=== PATIENT | male | born 1935 | race Caucasian/White ===

== ENCOUNTER 2019-01-03 12:14 | Observation (INO) ==
[2019-01-03] MEDS ORDERED: GI COCKTAIL ED USE PO ONE (12:33)
[2019-01-03 12:55] LABS: Basophils # (auto) 0.07 K/uL (0-0.2); Basophils % (auto) 1.2 %; Eosinophils # (auto) 0.16 K/uL (0-0.5); Eosinophils % (auto) 2.7 %; Hematocrit (blood only) 31.1 % (42-52); Hemoglobin 10.6 g/dL (14.0-18.0); Immature Granulocytes # (auto) 0.01 K/uL (0.00-0.02); Immature Granulocytes % (auto) 0.2 %; Lymphocytes # (auto) 1.51 K/uL (1.2-3.4); Lymphocytes % (auto) 25.5 %; Mean Corpuscular Hgb Conc 34.1 g/dL (32-36); Mean Corpuscular Volume 79.9 fL (80-100); Mean Platelet Volume 9.9 fL (7.4-10.4); Monocytes # (auto) 0.56 K/uL (0.11-0.59); Monocytes % (auto) 9.5 %; Neutrophils # (auto) 3.61 K/uL (1.4-6.5); Neutrophils % (auto) 60.9 %; Platelet Count 296 K/uL (130-400); RDW Coefficient of Variation 16.1 % (11.5-14.5); RDW Standard Deviation 46.8 fL (36.4-46.3); Red Blood Count 3.89 M/uL (4.7-6.1); White Blood Count 5.92 K/uL (4.8-10.8)
--- NOTE | 2019-01-03 13:04 | XRay Report ---
XR chest 1V portable CLINICAL HISTORY: Chest Pain COMPARISON STUDY: No previous studies for comparison. FINDINGS: Thoracolumbar spine fusion hardware and intracanalicular electrodes are noted. Old right ri b fractures are present. Chronic deformity of the proximal right humerus is present. There is no pneu mothorax or pleural effusion. There is no consolidation or evidence for pulmonary edema. Cardiac size is normal. Mediastinal contours are unremarkable. IMPRESSION: No acute cardiopulmonary findings. Electronically signed by: Kvng Solorzano M.D. 01/03/2019 1:03 PM
[2019-01-03 13:09] LABS: Alanine Aminotransferase 24 U/L (12-78); Albumin Level 3.2 gm/dl (3.4-5.0); Aspartate Aminotransferase 23 U/L (15-37); BUN Creatinine Ratio 24.5 (10-20); Blood Urea Nitrogen 17 mg/dl (7-18); Carbon Dioxide 24 mmol/L (21-32); Chloride 112 mmol/L (98-107); Creatinine Clr Calc Pharmacy 69.6 ml/min; Est GFR (African American) 101.2; Est GFR (Non-African American) 87.3; Glucose 110 mg/dl (70-99); Potassium 3.8 mmol/L (3.5-5.1); Sodium 144 mmol/L (136-145)
[2019-01-03 13:14] LABS: Albumin Globulin Ratio 1.2 (0.9-2); Alkaline Phosphatase 166 U/L (45-117); Bilirubin,Total 0.3 mg/dl (0.2-1); Globulin 2.8 gm/dl (2.5-4.0); Troponin I < 0.015 ng/ml (0-0.045)
--- NOTE | 2019-01-03 14:03 | Emergency Department Note ---
Entered by An Cross acting as a scribe for History of Present Illness General Chief complaint: Chest Pain Stated complaint: POSSIBLE HEART ATTACK Time Seen by Provider: 01/03/19 12:22 Source: patient History of Present Illness Onset (ago): hour(s) (this morning) Location: chest Pain Consistency: + other (episode) Maximum Pain Intensity: 3 Quality: + other (pressure) Relieved By: not by medication (Plavix, Zantac, Nitro (x2)) and not by other (cider vinegar) Associated symptoms: + denies other symptoms (radiation, shortness of breath, or pain or swelling in his legs) and + other (belching, gas) The patient is a 83 year old male that is presenting to the Emergency Room with complaints of an episode of chest pain that started this morning upon waking around 0700. The patient reports that the pain feels like a pressure under his left ribcage. He states that he has some associated gas and belching. He notes that he took Plavix, Zantac, cider vinegar, and 2 nitros with only a slight relief in his symptoms. He states that the pressure is present currently. He denies any radiation, shortness of breath, or pain or swelling in his legs. The patient notes that he has a history of 2 massive heart attacks and a coronary stent placement in [place]. He states that since his stent was placed on 07/07/18 he has had intermittent episodes of similar symptoms. He reports that he has been admitted to the hospital for similar symptoms but notes that they have not been able to make a diagnosis. He states that his doctor believes the pain is non-cardiac in origin. He notes that a GI cocktail usually helps relieve his symptoms. He denies having any similar symptoms prior to his stent placement. The patient states that he has not had any symptoms in the past 3 months. He reports that his last bowel movement was this morning after his symptoms began. He notes that he takes baby aspirin and Plavix daily. He states that his current symptoms are somewhat similar to his past episodes of heart attacks. The patient states that he lives in [place], [place]. Home Medications Home Medications Medication Instructions Recorded Confirmed Type aspirin 81 mg PO DAILY 01/03/19 01/03/19 History atorvastatin 80 mg PO DAILY 01/03/19 01/03/19 History carvedilol [Coreg] 6.25 mg PO BID 01/03/19 01/03/19 History clopidogrel [Plavix] 75 mg PO DAILY 01/03/19 01/03/19 History folic acid 1 mg PO DAILY 01/03/19 01/03/19 History multivitamin 1 tab PO DAILY 01/03/19 01/03/19 History nitroglycerin 0.4 mg SUBLINGUAL UD PRN 01/03/19 01/03/19 History ranitidine HCl 150 mg PO BID 01/03/19 01/03/19 History tramadol 50 mg PO TID PRN 01/03/19 01/03/19 History vitamin E 1,000 unit PO DAILY 01/03/19 01/03/19 History Allergies Allergy/AdvReac Type Severity Reaction Status Date / Time Iodinated Contrast- Oral and Allergy Severe RESTRICTED Unverified 01/03/19 13:11 IV Dye BREATHING Iodine and Iodide Containing Allergy Severe RESTRICTED Unverified 01/03/19 13:11 Produc BREATHING Past Med/Surg History Medical History CAD (coronary artery disease) (Chronic) History of heart attack (Acute) Surgical History S/P coronary artery stent placement Social History marital status: / Current Living Situation: Alone current occupational status: retired Feels Safe at Home: Yes Smoking Status: Never smoker Review of Systems See HPI for pertinent positives & negatives. and A total of 10 systems reviewed and were otherwise negative Physical Exam Vital Signs Vital Signs - 24 hr 01/03/19 12:19 01/03/19 12:47 01/03/19 12:49 Temperature 36.9 C Temperature Source Oral Sepsis Recent Fever Within 48 Hours No Sepsis New/Unexplained Change in Mental Status No Sepsis Action Taken by Nursing No Action Required Pulse Rate 62 56 L 59 L Pulse Rate from SpO2 Sensor 56 L 61 Respiratory Rate 18 14 15 Blood Pressure 131/68 123/61 Blood Pressure Mean 89 81 Pulse Oximetry 96 98 97 Oxygen Delivery Method Room Air 01/03/19 13:00 Temperature Temperature Source Sepsis Recent Fever Within 48 Hours Sepsis New/Unexplained Change in Mental Status Sepsis Action Taken by Nursing Pulse Rate 56 L Pulse Rate from SpO2 Sensor 57 L Respiratory Rate 14 Blood Pressure 128/71 Blood Pressure Mean 90 Pulse Oximetry 97 Oxygen Delivery Method General: Non-ill appearing older male in no acute distress. HEENT: Normal cephalic atraumatic. Pupils are equal round and reactive to light. Extraocular movements are intact. Oropharynx is pink with moist mucous membranes. No swelling of the mouth lips or tongue. Neck: Supple with a midline trachea. No meningeal signs or stiffness, no JVD or bruits. No Stridor. Chest: Clear to auscultation bilaterally. No wheezes or rhonchi. No increased work of breathing. Heart: regular rate and rhythm. Abdomen: Soft nontender, nondistended without rebound guarding or rigidity. Extremities: No cyanosis clubbing or edema. No calf tenderness or asymmetry Spine/Back. Non tender to palpation. No CVA tenderness Skin: Good turgor without rashes. Neurologic exam: Cranial nerves two through 12 are intact. Motor and sensation are intact and symmetrical throughout. Course 1225:The patient was evaluated in room B02. A complete history and physical examination was performed. 1250: I reevaluated the patient who is resting comfortably at this time. 1315: I spoke with the patient's son-in-law at this time who states that the GI cocktail has improved the patient's symptoms. 1355: I discussed the patient's case with GUSTAVO Mills, who will evaluate the patient for further management and care with Dr. Dennis as the attending physician. 1400: Upon reevaluation, the patient is resting comfortably. I discussed laboratory and radiographic results with the patient. He verbalized agreement of the treatment plan. The patient will be evaluated for further management and care. Consultations Consultation #1: I discussed the patient's case with GUSTAVO Mills, who will evaluate the patient for further management and care with Dr. Dennis as the attending physician. Time: 13:55 Administered Medications Discontinued Medications Al Hydrox/Mg Hydrox/Simethicone () 1 dose PO ONE ONE Stop: 01/03/19 12:34 Last Admin: 01/03/19 12:47 Dose: 1 dose Documented by: [id number] Medical Decision Making Differential Diagnosis Differential diagnosis includes: Etiologies such as acute coronary syndrome, GERD, CHF, anxiety, electrolyte or metabolic abnormalities as well as others. Medical Records Attestation: I reviewed the patient's medical records. Home Medications Current Medication List: was personally reviewed by me Laboratory Data Attestation: I reviewed the patient's lab results. Result diagrams: 01/03/19 12:44 01/03/19 12:44 Lab Results 01/03/19 01/03/19 Range/Units 12:44 12:44 WBC 5.92 (4.8-10.8) K/uL RBC 3.89 L (4.7-6.1) M/uL Hgb 10.6 L (14.0-18.0) g/dL Hct 31.1 L (42-52) % MCV 79.9 L (80-100) fL MCH 27.2 (25-34) pg MCHC 34.1 (32-36) g/dL RDW Std Deviation 46.8 H (36.4-46.3) fL RDW Coeff of Taniya 16.1 H (11.5-14.5) % Plt Count 296 (130-400) K/uL MPV 9.9 (7.4-10.4) fL Immature Gran % (Auto) 0.2 % Neut % (Auto) 60.9 % Lymph % (Auto) 25.5 % [place] % (Auto) 9.5 % Eos % (Auto) 2.7 % Baso % (Auto) 1.2 % Immature Gran # (Auto) 0.01 (0.00-0.02) K/uL Neut # (Auto) 3.61 (1.4-6.5) K/uL Lymph # (Auto) 1.51 (1.2-3.4) K/uL [place] # (Auto) 0.56 (0.11-0.59) K/uL Eos # (Auto) 0.16 (0-0.5) K/uL Baso # (Auto) 0.07 (0-0.2) K/uL Sodium 144 (136-145) mmol/L Potassium 3.8 (3.5-5.1) mmol/L Chloride 112 H (98-107) mmol/L Carbon Dioxide 24 (21-32) mmol/L Anion Gap 7.0 (3-11) BUN 17 (7-18) mg/dl Creatinine 0.70 (0.6-1.4) mg/dl Est Cr Clr Drug Dosing 69.6 ml/min Est GFR ( Amer) 101.2 Est GFR (Non-Af Amer) 87.3 BUN/Creatinine Ratio 24.5 H (10-20) Glucose 110 H (70-99) mg/dl Calcium 8.0 L (8.5-10.1) mg/dl Total Bilirubin 0.3 (0.2-1) mg/dl AST 23 (15-37) U/L ALT 24 (12-78) U/L Alkaline Phosphatase 166 H (45-117) U/L Troponin I < 0.015 (0-0.045) ng/ml Total Protein 6.0 L (6.4-8.2) gm/dl Albumin 3.2 L (3.4-5.0) gm/dl Globulin 2.8 (2.5-4.0) gm/dl Albumin/Globulin Ratio 1.2 (0.9-2) Lipase 79 (73-393) U/L Imaging Data Radiologist's Impression: Radiology results as stated below per my review and the radiologist's interpretation: XR chest 1V portable CLINICAL HISTORY: Chest Pain COMPARISON STUDY: No previous studies for comparison. FINDINGS: Thoracolumbar spine fusion hardware and intracanalicular electrodes are noted. Old right rib fractures are present. Chronic deformity of the proximal right humerus is present. There is no pneumothorax or pleural effusion. There is no consolidation or evidence for pulmonary edema. Cardiac size is normal. Mediastinal contours are unremarkable. IMPRESSION: No acute cardiopulmonary findings. Electronically signed by: Kvng Solorzano M.D. 01/03/2019 1:03 PM ECG Data Attestation: I personally reviewed and interpreted this ECG as follows: Indication: chest pain Rate (beats per minute): 57 Rhythm: sinus bradycardia Findings: + 1st degree AV block and + T-wave inversion (inferior) Comparison ECG Date: no prior available Additional Comments: I reviewed an old EKG from 12/30/2018 and noted no s ignificant changes from today. Blood Pressure Blood Pressure Findings: Normal blood pressure MDM Narrative This patient comes in as described above. He has some chest pain in the left side of his chest. He does have a history of coronary artery disease with OR and stent placement. He has also had noncardiac chest pain in the past as well and there seems to be difficulty discerning the two. [place] and is not been here before. He tried 2 nitroglycerin prior to arrival and that h elped somewhat but he still does have the pain. In the past, GI cocktails have helped at times. I did give him a GI cocktail and he felt better his EKG does have T wave inversions inferiorly. I did get an old EKG obtained from [facility] and this is unchanged. He does have a stent placed 6 months ago. Chest x-ray was unremarkable, he has no acute electrolyte or metabolic abnormalities and all the blood testing so far is normal. his initial cardiac biomarker with was negative with a normal troponin. Given his cardiac history, I do think the safest measure would be to observe him in the hospital. Again, it has been difficult to discern cardiac from noncardiac chest pain in the past. I have consulted the [facility] hospitalist to see him in the ER for these measures. Impression & Plan Chest pain Discharge Plan Visit Data Chief Complaint: Chest Pain Stated Complaint: POSSIBLE HEART ATTACK ED Provider: Jose Gil Discharge Problem: Chest pain Patient Disposition: Being Evaluated by Hospitalist Forms Stand Alone Forms: My [facility] Prescriptions Prescriptions: No Action multivitamin Tablet 1 tab PO DAILY RF: 0 vitamin E 1,000 unit Capsule 1,000 unit PO DAILY RF: 0 carvedilol [Coreg] 6.25 mg Tablet 6.25 mg PO BID RF: 0 clopidogrel [Plavix] 75 mg Tablet 75 mg PO DAILY RF: 0 aspirin 81 mg Tablet,Delayed Release (Dr/Ec) 81 mg PO DAILY RF: 0 tramadol 50 mg Tablet 50 mg PO TID PRN (Reason: Pain) RF: 0 ranitidine HCl 150 mg Tablet 150 mg PO BID RF: 0 folic acid 1 mg Tablet 1 mg PO DAILY RF: 0 atorvastatin 80 mg tablet 80 mg PO DAILY RF: 0 nitroglycerin 0.4 mg tablet, sublingual 0.4 mg sublingual UD PRN (Reason: Chest Pain) RF: 0 Referrals Referrals: ARMANI KING [Other] Discharge Problem: Chest pain Qualifiers: Chest pain type: unspecified Qualified Code(s): R07.9 - Chest pain, unspecified The scribe's documentation has been prepared under my direction and personally reviewed by me in its entirety. I confirm that the note above accurately reflects all work, treatment, procedures, and medical decision making performed by me.
[2019-01-03] MEDS ORDERED: ALUMINUM/MAGNESIUM SUSP 30 ML UDC PO STA (14:53)
[2019-01-03] MEDS ORDERED: NITROGLYCERIN SL 0.4 MG/TAB TAB SL PRN (15:55)
[2019-01-03] MEDS ORDERED: TRAMADOL HCL 50 MG TABLET PO PRN (15:55)
[2019-01-03] MEDS ORDERED: MAGNESIUM HYDROXIDE SUSP 30 ML UDC PO PRN (15:55)
[2019-01-03] MEDS ORDERED: POLYETHYLENE (MIRALAX) 17 GM PACK PO PRN (15:55)
[2019-01-03] MEDS ORDERED: ACETAMINOPHEN 325 MG TAB PO PRN (15:55)
[2019-01-03] MEDS ORDERED: ONDANSETRON INJ 2 MG/ML 2 ML VIAL IV PRN (15:55)
[2019-01-03] MEDS ORDERED: ALUMINUM/MAGNESIUM SUSP 30 ML UDC PO PRN (15:55)
--- NOTE | 2019-01-03 15:55 | History & Physical Report ---
Date of Service January 03, 2019 Assessment & Plan (1) Chest pain: This is an 83-year-old male who has a significant PMH of CAD with inferior wall SC status post MARISEL to RCA 06/27/2018, AAA 3.3cm, TIA, chronic back pain, lumbar fusion x3 who presents to [facility] ED secondary to chest pain since 6 AM. In ED patient's initial troponin was WNL. There were no acute EKG changes. He does have inferior T wave inversions which were present on prior EKG. He took 2 nitro with minimal relief. He did have GI cocktail while in ED and feels his chest pain is slightly improved but still present Chest x-ray revealed no acute abnormality CBC and CMP relatively unremarkable, mild microcytic anemia Chest pain likely GI in origin and noncardiac; however given recent history of SC will observe overnight admit to tele trend troponin x 2 cycle ecg obtain resting echocardigram Pt did have stress echo 10/06 which was negative for inducible ischemia, EF 55% Treat Gi sx with maalox and continued ranitidine educate pt on diet and lifestyle modifications heart healthy diet - recommend bland food selections until pain subsides cbc, bmp, lipid panel and A1C in a.m. (2) CAD (coronary artery disease): Patient with inferior [place] and MARISEL to RCA 06/27/2018 Continue ASA, Plavix, high intensity statin, Coreg Patient currently taking Coreg only once daily (3) GERD (gastroesophageal reflux disease): continue ranitidine maalox as needed avoid PPI given plavix use (4) Microcytic anemia: H/H stable at 10.6 and 31.1 Indices reveal microcytic anemia Patient had iron panel on 10/20 which revealed ferritin low at 20.6, iron 20, T sat 19, TIBC WNL Pt has never had colonoscopy or EGD recommend referral to GI upon discharge to evaluate sx if found to be noncardiac would recommend initiating iron supplement (5) AAA (abdominal aortic aneurysm): 3.3cm proximal AAA noted on abd U/S 08/2018 pt will need appropriate US for follow up (6) DVT prophylaxis: SCDS/TEDS Disposition: Discharge to home likely in a.m Follow up: PCP Dr. King along with Dr. [facility] Patient was seen and examined in collaboration with Dr. Dennis, please see addendum History of Present Illness Chief Complaint: Chest pain since 6am. Primary Care Provider: ARMANI KING This is an 83-year-old male who has a significant PMH of CAD with inferior wall [place] status post MARISEL to RCA 06/27/2018, AAA 3.3cm, TIA, chronic back pain, lumbar fusion x3 who presents to [facility] ED secondary to chest pain since 6 AM. Son-in-law at bedside. Patient elicits he was awoken with left-sided chest pain at approximately 6 AM. Pain was localized to left side, nonradiating, rated as a 3/10, constant, described as "steady pressure," not improved with nitro x2 with Tums, not made worse with deep breathing or exertion. Currently chest pain still present but less in severity. Son elicits to numerous episodes of belching earlier this morning. Had similar episodes in the past which he relates to acid reflux. He states he has had a couple of chest pain admissions since his heart attack in approximately 2 to 3 months ago someone diagnosed him with, "acid reflux." At that time he was started on Zantac twice daily and since then his symptoms have been absent. He only had a cup of tea this morning to drink, but last night he had a rich eggplant dish along with limoncello vodka. He denies any recent illness, fever, chills, sweats, shortness of breath, MCNAMARA, palpitations, hemoptysis, nausea, vomiting, abdominal pain, change in bowel or urinary habits. Allergies Allergy/AdvReac Type Severity Reaction Status Date / Time Iodinated Contrast- Oral and Allergy Severe RESTRICTED Unverified 01/03/19 13:11 IV Dye BREATHING Iodine and Iodide Containing Allergy Severe RESTRICTED Unverified 01/03/19 13:11 Produc BREATHING Home Medications Home Medications Medication Instructions Recorded Confirmed Type aspirin 81 mg PO DAILY 01/03/19 01/03/19 History atorvastatin 80 mg PO DAILY 01/03/19 01/03/19 History carvedilol [Coreg] 6.25 mg PO DAILY 01/03/19 01/03/19 History clopidogrel [Plavix] 75 mg PO DAILY 01/03/19 01/03/19 History folic acid 1 mg PO DAILY 01/03/19 01/03/19 History multivitamin 1 tab PO DAILY 01/03/19 01/03/19 History nitroglycerin 0.4 mg SUBLINGUAL UD PRN 01/03/19 01/03/19 History ranitidine HCl 150 mg PO BID 01/03/19 01/03/19 History tramadol 50 mg PO TID PRN 01/03/19 01/03/19 History vitamin E 1,000 unit PO DAILY 01/03/19 01/03/19 History Past Med/Surg History Medical History GERD (gastroesophageal reflux disease) (Chronic) Chronic back pain (Chronic) AAA (abdominal aortic aneurysm) (Chronic) Per U/S on 08/26/18: The visualized aorta demonstrates a proximal abdominal aortic aneurysm measuring 3.3 cm. TIA (transient ischemic attack) (Chronic) CAD (coronary artery disease) (Chronic) History of inferior wall SC with MARISEL to RCA 06/27/2019, Dr. 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) History of spinal surgery (Chronic) Thoracolumbar surgery x3 S/P coronary artery stent placement (Chronic) Family History Other Family history non-contributory Social History Preferred Language: Slovenian Communication Ability: Effective Beliefs That Will Affect Care: None marital status: / Current Living Situation: Alone current occupational status: retired Other Information That Helps Us Care for You: No Feels Safe at Home: Yes Safety Concerns: Feels Safe At This Time Smoking Status: Never smoker Hx Alcohol Use: Yes Alcohol type: wine Hx Substance Use: No Review of Systems Review of Systems: As noted per HPI, 10 systems reviewed and negative unless noted above. Physical Exam Physical Exam: Gen: WD/WN, elderly, male, sitting up in bed, very pleasant, conversing easily Head: Normocephalic, Atraumatic Eyes: Sclera normal, no conjunctival injection, PERRLA, EOMI ENT: Slightly hard of hearing, hearing aid device right ear, normal pharynx, mucous membranes moist Neck: supple, no adenopathy, No JVD, no bruit, Resp: Clear to auscultation b/l, no wheeze, rales, rhonchi. Normal insp/exp effort, no accessory muscle use CV: Regular rate, regular rhythm, no murmur, rub, gallop, or ectopy Abd: +BS x 4, soft, nontender, nondistended Musculoskeletal: moves extremities active rom x 4, strength intact, good efficiency manager strength Extremities: L 4th finger amputated distal to PIP, No edema bilaterally Skin: warm, moist, no rash, negative turgor, cap refill < 2sec Neuro: Alert and oriented x 3, speech normal, good mood/affect, cran nerve 2-12 intact grossly : deferred Results & Data Vital Signs (Past 12 Hours) Vital Signs Temp Pulse Resp BP Pulse Ox 01/03/19 14:31 59 L 22 148/67 H 98 01/03/19 14:30 63 20 97 01/03/19 14:00 56 L 12 144/75 H 99 01/03/19 13:31 58 L 17 158/77 H 97 01/03/19 13:30 52 L 12 98 01/03/19 13:00 56 L 14 128/71 97 01/03/19 12:49 59 L 15 97 01/03/19 12:47 56 L 14 123/61 98 01/03/19 12:19 36.9 C 62 18 131/68 96 Laboratory Results Short CBC 01/03/19 Range/Units 12:44 WBC 5.92 (4.8-10.8) K/uL Hgb 10.6 L (14.0-18.0) g/dL Hct 31.1 L (42-52) % Plt Count 296 (130-400) K/uL BMP 01/03/19 12:44 Sodium 144 Potassium 3.8 Chloride 112 H Carbon Dioxide 24 BUN 17 Creatinine 0.70 Glucose 110 H Calcium 8.0 L Cardiac Enzymes 01/03/19 Range/Units 12:44 Troponin I < 0.015 (0-0.045) ng/ml Liver Function 01/03/19 Range/Units 12:44 Total Bilirubin 0.3 (0.2-1) mg/dl AST 23 (15-37) U/L ALT 24 (12-78) U/L Alkaline Phosphatase 166 H (45-117) U/L Albumin 3.2 L (3.4-5.0) gm/dl Diagnostic Findings CXR: IMPRESSION: No acute cardiopulmonary findings. Medications Administered Discontinued Medications Al Hydrox/Mg Hydrox/Simethicone () 1 dose PO ONE ONE Stop: 06/16/19 12:34 Last Admin: 01/03/19 12:47 Dose: 1 dose Documented by: [id number] Al Hydrox/Mg Hydrox/Simethicone (Maalox) 15 ml PO NOW STA Stop: 01/03/19 14:54 Last Admin: 01/03/19 15:06 Dose: 15 ml Documented by: [id number] ECG Rate (beats per minute): 57 Rhythm: sinus bradycardia Findings: + 1st degree AV block Change: no significant change Additional Comments: Patient with chronic inferior t wave inversions, unchanged Code Status & VTE Plan Code Status Full Code VTE Prophylaxis Plan VTE Prophylaxis will be ordered: Yes Supervising Physician Co-Signing Physician Notes I have seen and examined the patient with physician trading assistant and agree with the assessment and plan as above and would like to comment that Patient presents to the patient with left chest discomfort starting in AM of 01/03/19 which is associated with belching. He took nitro x 2 at home without relief Patient with initial negative troponin and got GI cocktail in the ED with some improvements of symptoms but still with chest pressure. The initial troponin is negative While Gastric esophageal reflux is considered on the differential, the patient is known to have coronary artery disease with stent and on dual anti-platelets As per a September 2018 discharge summary from [facility] in [place] Stress echo 09/26/2018 The stress echo is negative for inducible ischemia. The examination is adequate to evaluate the referral indication. Stress Findings The stress EKG response was normal. The stress EKG response showed no evidence of ischemia. Rare PACs were noted during stress. Sinus rhythm was noted at rest. Left axis deviation is noted at rest. Q- waves were noted in inferior leads at rest. T-wave abnormalities were noted in inferior leads at rest. T-wave abnormalities were noted in lateral leads at rest. The stress test was terminated due to 85 % maximal heart rate was achieved. No symptoms were noted. Heart rate response to stress was normal. Blood pressure response to exercise was normal. Left Ventricular The qualitative LV ejection fraction is 55-59% (normal). The left ventricular cavity size is normal. The basal septum is thickened and angulated consistent with sigmoid septum. There is isolated basal septal hypertrophy with maximal thickness of 1.5 cm. There is no dynamic left ventricular outflow tract obstruction. There is no left ventricular mural thrombus. Left Ventricular Findings with Stress The left ventricular ejection fraction increases normally with stress. Right Ventricle The right ventricular cavity size is normal (basal dimension < 4.2 cm RV apical 4 chamber view). The right ventricular systolic function is qualitatively normal. Atria The left atrium is mildly enlarged (35-41 ml/m^2). The right atrial size is normal. Diastolic Function The left ventricular diastolic function is mildly abnormal (grade I). Will review the results of resting echocardiogram being performed in the ED on 01/03/19 when it is interpreted by cardiology service. Will trend troponins and place patient under observation on telemetry. Continue patients dual antiplatelet therapy. Patients heart rate in the high 50s, he reports he takes carvedilol as a once a day medication can continue for now Additional Maalox given to the patient in the ED. He reports improvement with the Maalox when he was up on medial telemtry amanda -I encouraged him to avoid spicy or fatty foods. He agrees to try liquid diet while in the hospital for now History of laminectomy L3-L5, PSO (pedicle subtraction osteotomy) L4, posterior spinal fusion T12-S1 with graft in April 2019 -follows with orthopedics at [facility] Other management of health issues as documented by physician trading assistant Physical Exam General: not in distress, cooperative on exam Neuro: moves all extremities, awake and alert, no facial droop Lungs: clear to auscultation bilaterally Heart: bradycardic, sinus rhythm Abdomen: soft, nontender, positive bowel sounds Extremities: no gross edema (1) Chest pain Chest pain type: unspecified Qualified Code(s): R07.9 - Chest pain, unspecified
[2019-01-03] MEDS ORDERED: ATORVASTATIN 40 MG TAB PO SCH (16:00)
[2019-01-03] MEDS ORDERED: COUGH DROP (SUGAR FREE) LOZ 24 LOZ/1 BOX BUCCAL PRN (23:34)
[2019-01-04 06:45] LABS: Hematocrit (blood only) 32.1 % (42-52); Hemoglobin 10.5 g/dL (14.0-18.0); Mean Corpuscular Hgb Conc 32.7 g/dL (32-36); Mean Corpuscular Volume 79.3 fL (80-100); Mean Platelet Volume 10.3 fL (7.4-10.4); Platelet Count 290 K/uL (130-400); RDW Standard Deviation 46.6 fL (36.4-46.3); Red Blood Count 4.05 M/uL (4.7-6.1); White Blood Count 5.61 K/uL (4.8-10.8)
[2019-01-04 07:05] LABS: BUN Creatinine Ratio 25.7 (10-20); Calcium 8.1 mg/dl (8.5-10.1); Creatinine Clr Calc Pharmacy 83.9 ml/min; Est GFR (African American) 109.3; Est GFR (Non-African American) 94.3; Potassium 3.7 mmol/L (3.5-5.1)
[2019-01-04 08:45] LABS: Estimated Average Glucose 134 mg/dl; Hemoglobin A1C 6.3 % (4.5-5.6)
--- NOTE | 2019-01-04 08:55 | Hospitalist Progress Note ---
Date of Service January 04, 2019 Assessment & Plan (1) Chest pain: non cardiac chest pain, pain likely due Gastric esophageal reflux disease or indigestion (heartburn) This is an 83-year-old male who has a significant PMH of CAD with inferior wall [place] status post MARISEL to RCA 06/27/2018, AAA 3.3cm, TIA, chronic back pain, lumbar fusion x3 who presents to [facility] ED secondary to chest pain Patient presents to the patient with left chest discomfort starting in AM of 01/03/19 which is associated with belching. He took nitro x 2 at home without relief Patient with initial negative troponin and got GI cocktail in the ED with some improvements of symptoms but still with chest pressure. The initial troponin is negative While Gastric esophageal reflux is considered on the differential, the patient is known to have coronary artery disease with stent and on dual anti-platelets As per a September 2018 discharge summary from [facility] in [place] Stress echo 09/26/2018 The stress echo is negative for inducible ischemia. The examination is adequate to evaluate the referral indication. Stress Findings The stress EKG response was normal. The stress EKG response showed no evidence of ischemia. Rare PACs were noted during stress. Sinus rhythm was noted at rest. Left axis deviation is noted at rest. Q- waves were noted in inferior leads at rest. T-wave abnormalities were noted in inferior leads at rest. T-wave abnormalities were noted in lateral leads at rest. The stress test was terminated due to 85 % maximal heart rate was achieved. No symptoms were noted. Heart rate response to stress was normal. Blood pressure response to exercise was normal. Left Ventricular The qualitative LV ejection fraction is 55-59% (normal). The left ventricular cavity size is normal. The basal septum is thickened and angulated consistent with sigmoid septum. There is isolated basal septal hypertrophy with maximal thickness of 1.5 cm. There is no dynamic left ventricular outflow tract obstruction. There is no left ventricular mural thrombus. Left Ventricular Findings with Stress The left ventricular ejection fraction increases normally with stress. Right Ventricle The right ventricular cavity size is normal (basal dimension < 4.2 cm RV apical 4 chamber view). The right ventricular systolic function is qualitatively normal. Atria The left atrium is mildly enlarged (35-41 ml/m^2). The right atrial size is normal. Diastolic Function The left ventricular diastolic function is mildly abnormal (grade I). Will review the results of resting echocardiogram being performed in the ED on 01/03/19 when it is interpreted by cardiology service. Will trend troponins and place patient under observation on telemetry. Continue patients dual antiplatelet therapy. Patients heart rate in the high 50s, he reports he takes carvedilol as a once a day medication can continue for now Additional Maalox given to the patient in the ED. He reports improvement with the Maalox when he was up on medical telemetry amanda -I encouraged him to avoid spicy or fatty foods. He agrees to try liquid diet while in the hospital for now as of 01/04/19: no further chest pain, troponins have been negative x 3, no acute telemetry events , echocardiogram with EF of 60 to 65%, patient declines inpatient cardiology evaluation Patient is discharged to home Patient should follow up with primary care Dr. Malick Norris in [place], [place] [phone] Patient may take maalox every 4 hours as needed for indigestion or heartburn Patient should avoid greasy foods. outpatient follow up with usual cardiology clinic (2) CAD (coronary artery disease): Patient with inferior [place] and MARISEL to RCA 06/27/2018 Continue ASA, Plavix, high intensity statin, Coreg Patient currently taking Coreg only once daily continue outpatient cardiology follow ups (3) GERD (gastroesophageal reflux disease): continue ranitidine maalox as needed (4) Microcytic anemia: H/H stable at 10.6 and 31.1 Indices reveal microcytic anemia Patient had iron panel on 10/20 which revealed ferritin low at 20.6, iron 20, T sat 19, TIBC WNL Patient should take iron supplements for Microcytic anemia and follow up as outpatient with gastroenterology service to consider colonoscopy if deemed needed by primary care doctor (5) AAA (abdominal aortic aneurysm): 3.3cm proximal AAA noted on abd U/S 08/2018 pt will need appropriate US for follow up as outaptient History of laminectomy L3-L5, PSO (pedicle subtraction osteotomy) L4, posterior spinal fusion T12-S1 with graft in April 2019 -follows with orthopedics at [facility] (6) DVT prophylaxis: -SCDS/TEDS Patient's phone number [phone], daughter [phone] Discharge diagnosis non cardiac chest pain, pain likely due Gastric esophageal reflux disease or indigestion (heartburn),History of coronary artery disease with stent, History of laminectomy and spinal fusion, Microcytic anemia, history of AAA (abdominal aortic aneurysm) Subjective Patient denies chest pain since yesterday after given Maalox. He declined to be seen by cardiology service and initially wanted to leave against medical advice. However, cardiology service with normal echocardiogram ejection fraction. other assessments for acute coronary syndrome is negative. no vomiting. no abdomen pain. no lightheadedness. no dizziness Physical Exam Constitutional: WD/WN, vitals as above Eyes: PERRL, conjunctivae normal, anicteric sclerae EOM intact bilaterally ENMT: external ear and nose normal, oropharynx normal Neck: trachea midline, no thyromegaly Respiratory: normal respiratory effort, lungs clear to auscultation Cardiovascular: Rate/Rhythm: regular rhythm and + bradycardic Gastrointestinal (Abdomen): normal bowel sounds, soft, nontender, no hepatosplenomegaly Musculoskeletal: no cyanosis or clubbing, extremities motor strength 5/5 Head/Neck/Chest: normocephalic and head atraumatic Neurologic: PERRL, EOMI, accommodation nl, no face palsy, no dysarthria CN's II-XI intact bilaterally Psychiatric: A+Ox3, euthymic affect Results & Data Vital Signs (Past 12 Hours) Vital Signs Temp Pulse Pulse Pulse Resp BP Pulse Ox 01/04/19 07:46 65 01/04/19 07:00 36.8 C 64 18 153/83 H 94 01/04/19 03:26 36.6 C 63 16 158/82 H 98 01/03/19 23:45 63 01/03/19 23:00 37.1 C 76 17 142/74 H 97 (1) Chest pain Chest pain type: unspecified Qualified Code(s): R07.9 - Chest pain, unspecified
[2019-01-04] MEDS ORDERED: TOCOPHERYL, DL-ALPHA 400 UNITS CAP PO SCH (09:00)
[2019-01-04] MEDS ORDERED: CLOPIDOGREL BISULFATE 75 MG TAB PO SCH (09:00)
[2019-01-04] MEDS ORDERED: ASPIRIN 81 MG ECTAB PO SCH (09:00)
[2019-01-04] MEDS ORDERED: CARVEDILOL 6.25 MG TAB PO SCH (09:00)
[2019-01-04] MEDS ORDERED: FOLIC ACID 1 MG TAB PO SCH (09:00)
[2019-01-04] MEDS ORDERED: MULTIVITAMIN TAB PO SCH (09:00)
--- NOTE | 2019-01-04 09:16 | Discharge Summary ---
Date of Service January 04, 2019 Admission HPI Per Admitting Provider This is an 83-year-old male who has a significant PMH of CAD with inferior wall NM status post MARISEL to RCA 06/27/2018, AAA 3.3cm, TIA, chronic back pain, lumbar fusion x3 who presents to [facility] ED secondary to chest pain since 6 AM. Son-in-law at bedside. Patient elicits he was awoken with left-sided chest pain at approximately 6 AM. Pain was localized to left side, nonradiating, rated as a 3/10, constant, described as "steady pressure," not improved with nitro x2 with Tums, not made worse with deep breathing or exertion. Currently chest pain still present but less in severity. Son elicits to numerous episodes of belching earlier this morning. Had similar episodes in the past which he relates to acid reflux. He states he has had a couple of chest pain admissions since his heart attack in approximately 2 to 3 months ago someone diagnosed him with, "acid reflux." At that time he was started on Zantac twice daily and since then his symptoms have been absent. He only had a cup of tea this morning to drink, but last night he had a rich eggplant dish along with limoncello vodka. He denies any recent illness, fever, chills, sweats, shortness of breath, MCNAMARA, palpitations, hemoptysis, nausea, vomiting, abdominal pain, change in bowel or urinary habits. Admission Exam Per Admitting Provider Gen: WD/WN, elderly, male, sitting up in bed, very pleasant, conversing easily Head: Normocephalic, Atraumatic Eyes: Sclera normal, no conjunctival injection, PERRLA, EOMI ENT: Slightly hard of hearing, hearing aid device right ear, normal pharynx, mucous membranes moist Neck: supple, no adenopathy, No JVD, no bruit, Resp: Clear to auscultation b/l, no wheeze, rales, rhonchi. 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, No edema bilaterally Skin: warm, moist, no rash, negative turgor, cap refill < 2sec Neuro: Alert and oriented x 3, speech normal, good mood/affect, cran nerve 2-12 intact grossly : deferred Principal Diagnosis non cardiac chest pain, pain likely due Gastric esophageal reflux disease or indigestion (heartburn),History of coronary artery disease with stent, History of laminectomy and spinal fusion, Microcytic anemia, history of AAA (abdominal aortic aneurysm) Discharge Data Allergies Allergy/AdvReac Type Severity Reaction Status Date / Time Iodinated Contrast- Oral and Allergy Severe RESTRICTED Unverified 01/03/19 13:11 IV Dye BREATHING Iodine and Iodide Containing Allergy Severe RESTRICTED Unverified 01/03/19 13:11 Produc BREATHING Consultations 01/03/19 13:56 ED Decision to Admit Stat 01/03/19 15:55 Consult Cardiology Routine Hospital Course (1) Chest pain: non cardiac chest pain, pain likely due Gastric esophageal reflux disease or indigestion (heartburn) This is an 83-year-old male who has a significant PMH of CAD with inferior wall NM status post MARISEL to RCA 06/27/2018, AAA 3.3cm, TIA, chronic back pain, lumbar fusion x3 who presents to [facility] ED secondary to chest pain Patient presents to the patient with left chest discomfort starting in AM of 01/03/19 which is associated with belching. He took nitro x 2 at home without relief Patient with initial negative troponin and got GI cocktail in the ED with some improvements of symptoms but still with chest pressure. The initial troponin is negative While Gastric esophageal reflux is considered on the differential, the patient is known to have coronary artery disease with stent and on dual anti-platelets As per a September 2018 discharge summary from [facility] in [place] Stress echo 09/26/2018 The stress echo is negative for inducible ischemia. The examination is adequate to evaluate the referral indication. Stress Findings The stress EKG response was normal. The stress EKG response showed no evidence of ischemia. Rare PACs were noted during stress. Sinus rhythm was noted at rest. Left axis deviation is noted at rest. Q- waves were noted in inferior leads at rest. T-wave abnormalities were noted in inferior leads at rest. T-wave abnormalities were noted in lateral leads at rest. The stress test was terminated due to 85 % maximal heart rate was achieved. No symptoms were noted. Heart rate response to stress was normal. Blood pressure response to exercise was normal. Left Ventricular The qualitative LV ejection fraction is 55-59% (normal). The left ventricular cavity size is normal. The basal septum is thickened and angulated consistent with sigmoid septum. There is isolated basal septal hypertrophy with maximal thickness of 1.5 cm. There is no dynamic left ventricular outflow tract obstruction. There is no left ventr icular mural thrombus. Left Ventricular Findings with Stress The left ventricular ejection fraction increases normally with stress. Right Ventricle The right ventricular cavity size is normal (basal dimension < 4.2 cm RV apical 4 chamber view). The right ventricular systolic function is qualitatively normal. Atria The left atrium is mildly enlarged (35-41 ml/m^2). The right atrial size is normal. Diastolic Function The left ventricular diastolic function is mildly abnormal (grade I). Will review the results of resting echocardiogram being performed in the ED on 01/03/19 when it is interpreted by cardiology service. Will trend troponins and place patient under observation on telemetry. Continue patients dual antiplatelet therapy. Patients heart rate in the high 50s, he reports he takes carvedilol as a once a day medication can continue for now Additional Maalox given to the patient in the ED. He reports improvement with the Maalox when he was up on medical telemetry amanda -I encouraged him to avoid spicy or fatty foods. He agrees to try liquid diet while in the hospital for now as of 01/04/19: no further chest pain, troponins have been negative x 3, no acute telemetry events , echocardiogram with EF of 60 to 65%, patient declines inpatient cardiology evaluation Patient is discharged to home Patient should follow up with primary care Dr. Malick Norris in [place], [place] [phone] Patient may take maalox every 4 hours as needed for indigestion or heartburn Patient should avoid greasy foods. outpatient follow up with usual cardiology clinic (2) CAD (coronary artery disease): Patient with inferior NM and MARISEL to RCA 06/27/2018 Continue ASA, Plavix, high intensity statin, Coreg Patient currently taking Coreg only once daily continue outpatient cardiology follow ups (3) GERD (gastroesophageal reflux disease): continue ranitidine maalox as needed (4) Microcytic anemia: H/H stable at 10.6 and 31.1 Indices reveal microcytic anemia Patient had iron panel on 10/20 which revealed ferritin low at 20.6, iron 20, T sat 19, TIBC WNL Patient should take iron supplements for Microcytic anemia and follow up as outpatient with gastroenterology service to consider colonoscopy if deemed needed by primary care doctor (5) AAA (abdominal aortic aneurysm): 3.3cm proximal AAA noted on abd U/S 08/2018 pt will need appropriate US for follow up as outaptient History of laminectomy L3-L5, PSO (pedicle subtraction osteotomy) L4, posterior spinal fusion T12-S1 with graft in April 2019 -follows with orthopedics at [facility] (6) DVT prophylaxis: -SCDS/TEDS Patient's phone number [phone], daughter [phone] Discharge diagnosis non cardiac chest pain, pain likely due Gastric esophageal reflux disease or indigestion (heartburn),History of coronary artery disease with stent, History of laminectomy and spinal fusion, Microcytic anemia, history of AAA (abdominal aortic aneurysm) Total Time Total Time Spent Total Time Spent (In Minutes): 40 minutes Total Time Includes: Examination of the Patient, Discharge Planning, Medication Reconciliation and Communication With Other Providers Discharge Plan Discharge Items Patient Disposition: Home - Self-Care Reason For Visit: CHEST PAIN Discharge Diagnosis: non cardiac chest pain, pain likely due Gastric esophageal reflux disease or indigestion (heartburn), History of coronary artery disease with stent, History of laminectomy and spinal fusion, Microcytic anemia, history of AAA (abdominal aortic aneurysm) Condition: Good Discharge Goals: Decrease discomfort Activity: Resume your previous activity Non-emergency contact: Primary Care Provider Call non-emergency contact if: you have any medication questions Follow-up/Referrals: Malick Norris MD [Primary Care Provider] - Diet: Regular Addtl Provider Instructions: Patient is discharged to home Patient should follow up with primary care Dr. Malick Norris in [place], [place] [phone] Patient may take maalox every 4 hours as needed for indigestion or heartburn Patient should avoid greasy foods. outpatient follow up with usual cardiology clinic Patient should take iron supplements for Microcytic anemia; Patient should take iron supplements for Microcytic anemia and follow up as outpatient with gastroenterology service to consider colonoscopy if deemed needed by primary care doctor Prescriptions: New MAG-AL 200-200 mg/5 mL Suspension 15 ml PO Q4H PRN (Reason: indigestion) 5 Days Qty: 500 RF: 0 ferrous sulfate 325 mg (65 mg iron) Tablet,Delayed Release (Dr/Ec) 325 mg PO QAM 30 Days Qty: 30 RF: 0 Continued multivitamin Tablet 1 tab PO DAILY RF: 0 vitamin E 1,000 unit Capsule 1,000 unit PO DAILY RF: 0 carvedilol [Coreg] 6.25 mg Tablet 6.25 mg PO DAILY RF: 0 clopidogrel [Plavix] 75 mg Tablet 75 mg PO DAILY RF: 0 aspirin 81 mg Tablet,Delayed Release (Dr/Ec) 81 mg PO DAILY RF: 0 tramadol 50 mg Tablet 50 mg PO TID PRN (Reason: Pain) RF: 0 ranitidine HCl 150 mg Tablet 150 mg PO BID RF: 0 folic acid 1 mg Tablet 1 mg PO DAILY RF: 0 atorvastatin 80 mg tablet 80 mg PO DAILY RF: 0 nitroglycerin 0.4 mg tablet, sublingual 0.4 mg sublingual UD PRN (Reason: Chest Pain) RF: 0 Stand-Alone Forms: [facility] Discharge Orders: Discharge Order (Routine); Ordered 01/04/19 Ordered By: Eloy Dennis Admission Data Admit Date/Time: 01/03/19 14:21 Attending Provider: Eloy Dennis Admit Provider: Eloy Dennis Primary Care Provider: Malick Norris Other Providers: Eloy Dennis ; Sae Rubalcava Service: Telemetry Medical
[2019-01-05] MEDS ORDERED: FERROUS SULFATE 325 MG TAB PO SCH (09:00)
== END 2019-01-04 09:30 | disposition home or self-care (01) ==
LOC: 2N 12:14 → ED 12:14 → 2N 15:01